=== PATIENT | female | born 1975 | race Caucasian/White ===

== ENCOUNTER 2018-09-12 14:59 | Day surgery (SDC) | payer OTHER ==
[2018-09-12] MEDS ORDERED: LR 1,000 ML IV ONE (15:49)
[2018-09-12] MEDS ORDERED: MIDAZOLAM 2 MG/2 ML VIAL IVP ONE (17:53)
[2018-09-12] MEDS ORDERED: ceFAZolin 2 GM/DEXTROSE 100 ML IV ONE (17:56)
--- NOTE | 2018-09-12 17:56 | PDHPUP ---
History & Physical Update H&P update statement: This history and physical update is based on an assessment of the patient which was completed after admission or registration (within 24 hours), but prior to the surgery/procedure. H&P update: H&P reviewed & patient examined, no change in patient's condition since H&P completed
--- NOTE | 2018-09-12 17:56 | PDANEPAE ---
ANE History of Present Illness ureteral stone here for ureteroscopy ANE Past Medical History - Cardiovascular History Hx Hypertension: No Hx Arrhythmias: No Hx Chest Pain: No Hx Coronary Artery / Peripheral Vascular Disease: No Hx CHF / Valvular Disease: No Hx Palpitations: No - Pulmonary History Hx COPD: No Hx Asthma/Reactive Airway Disease: No Hx Recent Upper Respiratory Infection: No Hx Oxygen in Use at Home: No Hx Sleep Apnea: No - Neurologic History Hx Cerebrovascular Accident: No Hx Seizures: No Hx Dementia: No - Endocrine History Hx Diabetes: No - Renal History Hx Renal Disorders: No - Liver History Hx Hepatic Disorders: No - Neurological & Psychiatric Hx Hx Neurological and Psychiatric Disorders: No - Cancer History Hx Cancer: No - Congenital Disorder History Hx Congenital Disorders: No - GI History Hx Gastrointestinal Disorders: No - Surgical History Prior Surgeries: ANE Review of Systems Review of Systems: - Exercise capacity METS (RN): 5 METS ANE Patient History - Allergies Allergies/Adverse Reactions: No Known Allergies Allergy (Verified 04/17/13 19:37) - Home Medications Home Medications: Miscellaneous Medical Supply [NO HOME MEDS] 01/06/13 [Last Taken 01/06/13 18:45 ] - NPO status NPO Status: no food or drink >8 hours NPO Since - Liquids (Date): 09/12/18 NPO Since - Liquids (Time): 12:00 NPO Since - Solids (Date): 09/11/18 NPO Since - Solids (Time): 23:00 - Anes Hx Anes Hx: no prior problems - Smoking Hx Smoking Status: Never smoked - Alcohol Use Alcohol Use: None - Family Anes Hx Family Anes Hx: none ANE Labs/Vital Signs - Vital Signs Blood Pressure: 119/83 Heart Rate: 72 Respiratory Rate: 16 O2 Sat (%): 97 Height: 172.72 cm Weight: 72.575 kg ANE Physical Exam - Airway Neck exam: FROM Mallampati Score: Class 2 Mouth exam: normal dental/mouth exam - Pulmonary Pulmonary: no respiratory distress, clear to auscultation - Cardiovascular Cardiovascular: regular rate and rhythym, no murmur, rub, or gallop - ASA Status ASA Status: I ANE Anesthesia Plan Anesthesia Plan: GA w LMA
[2018-09-12] MEDS ORDERED: OPIUM/BELLADONNA ALKALO SUPP PR PRN (17:57)
[2018-09-12] MEDS ORDERED: PROPOFOL/EMULSION 500 MG/50 ML BOTTLE IV ONE (18:07)
[2018-09-12] MEDS ORDERED: fentaNYL 100 MCG/2 ML INJ ONE (18:07)
[2018-09-12] MEDS ORDERED: LIDOCAINE 2% 100 MG/5 ML SYR ONE (18:10)
[2018-09-12] MEDS ORDERED: IOPAMIDOL (ISOVUE-M 300) 15 ML VIAL ONE (18:17)
[2018-09-12] MEDS ORDERED: OPIUM/BELLADONNA ALKALO SUPP PR ONE (18:17)
[2018-09-12] MEDS ORDERED: LIDOCAINE 2% JELLY 20 ML (UROJECT) ONE (18:17)
[2018-09-12] MEDS ORDERED: ACETAMINOPHEN 500 MG TAB PO PRN (19:09)
[2018-09-12] MEDS ORDERED: NALOXONE HCL 0.4 MG/ML INJ IVP PRN (19:09)
[2018-09-12] MEDS ORDERED: ONDANSETRON 4 MG/2 ML VIAL IVP PRN (19:09)
[2018-09-12] MEDS ORDERED: oxyCODONE IR 5 MG TAB PO PRN (19:09)
[2018-09-12] MEDS ORDERED: HYDROCODONE/APAP 5/325 TAB PO PRN (19:09)
[2018-09-12] MEDS ORDERED: fentaNYL 100 MCG/2 ML INJ IVP PRN (19:09)
--- NOTE | 2018-09-12 19:10 | POSTANESTH ---
Post Anesthetic Evaluation Cardiovascular Status: Normal, Stable, Similar to Pre-Op Cond Respiratory Status: Normal, Stable, Similar to Pre-op Cond. Level of Consciousness/Mental Status: Can Participate in Eval, Alert and Oriented Pain Control: Adequate, Prn Tx Ordered Nausea/Vomiting Control: Adequate, Prn Tx Ordered Complications Possibly Related to Anesthesia: None Noted
[2018-09-12] MEDS ORDERED: KETOROLAC 30 MG/1 ML SDV ONE (19:11)
--- NOTE | 2018-09-12 19:16 | POSTOPPROG ---
Post Op Note Date of Operation: 09/12/18 Surgeon: Rand Navas Anesthesiologist: Dianna Anesthesia: GET(General Endotracheal) Pre-op Diagnosis: right UPJ stone, hydronephrosis, nausea, emsis Post-op Diagnosis: same Indication: right UPJ stone, hydronephrosis, nausea, emsis Procedure: cysto, R ureteral stent placement, fluoro Findings: right stone visible on fluoro, stent placed Inf/Abcess present in the surg proc area at time of surgery?: No EBL: Minimal Complications: none, pt tolerated procedure well Specimen(s): none
[2018-09-12] MEDS ORDERED: KETOROLAC 30 MG/1 ML SDV IVP ONE (19:20)
[2018-09-12 20:18] VITALS: BP 152/81
--- NOTE | 2018-09-13 11:07 | GOP ---
[f rep st] OPERATIVE REPORT DATE OF OPERATION: 09/12/2018 SURGEON: Rand Navas MD ANESTHESIOLOGIST: Dr. Bustamante. PREOPERATIVE DIAGNOSIS: Right ureteropelvic junction stone, hydronephrosis, nausea, and emesis. POSTOPERATIVE DIAGNOSIS: Right ureteropelvic junction stone, hydronephrosis, nausea, and emesis. PROCEDURE PERFORMED: Cystoscopy, right ureteral stent placement, intraoperative fluoroscopy. FINDINGS: The right stone visible on fluoroscopy and a stent was placed. SPECIMENS: None. ESTIMATED BLOOD LOSS: Minimal. INDICATIONS: The patient was in the ER over the weekend with right flank pain, nausea, and vomiting. She was discharged with recommendations to follow up with a urologist. She came to my office today and I reviewed her imaging. She had an obstructing right UPJ stone with hydronephrosis and she wei red intervention. I felt that decompression of her system with a stent is appropriate, she has other nonobstructing stones, and I could do the stent in the evening, and then, we set her up for stone pr ocedure the following week. She agreed to this plan and the rationale, risks, and benefits were disc ussed in detail, and she agreed to proceed. DESCRIPTION OF PROCEDURE: She was taken back to the cystoscopy suite, placed on the cystoscopy table in supine position. General anesthesia induced without complication. Time-out performed. Core alyse sures satisfied, including placement of a Fan Hugger, SCDs, administration of 2 g Ancef antibiotics. She was brought to the end of the table, placed in dorsal lithotomy position. All pressure points padded. Genitalia draped and prepped in a standard surgical fashion with Betadine. Rigid cystoscope easily cannulated the urethral meatus and advanced atraumatically into the bladder. Abdalla cystoscopy performed. No lesions, stones, trabeculation, or abnormalities were seen. I was abl e to cannulate her right ureteral orifice with a 5-[place] open-ended catheter, advanced the wire in t he right collecting system. The wire did get hung up where the stone was, but eventually I was able to manipulate the wire around the stone into the right collecting system. I then advanced a 6-[place] multivariable stent over the wire. I did again meet some resistance going around the stone, but was eventually able to get around the stone with the stent and have a curl in the renal pelvis, a nice c url in the bladder. There was significant amount of debris and cloudy urine that drained through the little holes on the stent that I could see visually in the bladder, but otherwise, she remained stab le during the entire procedure, and she did well. I emptied her bladder. Lidocaine jelly placed per urethra. Belladonna opium suppository placed per rectum. At this point, the procedure was consider ed complete. She was awoken from anesthesia and transferred to PACU in good condition. COMPLICATIONS: None. /[id number]/MODL
== END 2018-09-12 20:45 | disposition home or self-care (01) ==
LOC: FSGY 14:59
PROVIDERS: ATTEND Urology
PROC: BT161ZZ Fluoroscopy of Right Ureter using Low Osmolar Contrast (ICD-10-PCS; principal; 2018-09-12 16:00)
PROC: 0T768DZ Dilation of Right Ureter with Intraluminal Device, Via Natural or Artificial Opening Endoscopic (ICD-10-PCS; principal; 2018-09-12 16:00)
DX: N13.2 Hydronephrosis with renal and ureteral calculous obstruction (principal); Z82.49 Family history of ischemic heart disease and other diseases of the circulatory system
CPT/HCPCS: 52332; 76000; C1758; C1769; C2625; J0690; J1885; J2001; J2250; J2704; J3010; Q9967